=== PATIENT | male | born 1995 | race Caucasian/White ===

== ENCOUNTER 2017-12-04 21:16 | Emergency (ER) | payer OTHER ==
--- NOTE | 2017-12-04 21:20 | ED Physician Documentation ---
Low Back Pain - HISTORIAN Historian: patient - HPI Stated Complaint: Back pain at work Chief Complaint: Lower Extremity Problem History: history of chronic pain:, back pain (He states he has a history of back pain but tonight the pain was increased and noted after picking up an object at work and it felt like "something grabbing me with clamps" and states he took a minute to be able to stand up straight. Denies any loss of control of bowel or bladder. He did not take any OTC meds to aid the pain. States "years ago I had a back injury from lifiting weights" states he has not had any recent issues with his back. no recent injuries. No decrease in movement since the pain but the pain is increased. 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 He states he then told his supervisor taping that he needed to come to the ER. States he has had back isssues in the past but nothing recent. He has no OTC meds on board for pain. Denies any loss of control of bowel or bladder.) - ROS CONST: no problems CVS/RESP: none EYES/ENT: none MS/SKIN/LYMPH: none Neuro/Psych: none - PAST HX Past History: back injury Surgeries/Procedures: none Immunizations: UTD Allergies/Adverse Reactions: Allergies Allergy/AdvReac Type Severity Reaction Status Date / Time No Known Allergies Allergy Verified 12/04/17 22:50 Home Medications: Ambulatory Orders Medication Instructions Recorded Topiramate [Topamax] 50 mg PO BID 12/04/17 - SOCIAL HX Smoking History: non-smoker Alcohol Use: none Drug Use: none - FAMILY HX Family History: none - VITAL SIGNS Vital Signs: Vital Signs Temp Pulse Resp BP Pulse Ox 97.7 F 71 16 133/57 98 12/04/17 22:11 12/04/17 22:11 12/04/17 22:11 12/04/17 22:11 12/04/17 22:11 - REVIEWED ASSESSMENTS Nursing Assessment Reviewed: Yes Vitals Reviewed: Yes ED Results Lab/Radiology - Radiology Radiology Impressions: Thoracic spine, 3 views. History: BACK PAIN AFTER LIFTING BOX TODAY Findings: The vertebral body height are normal. No significant intervertebral disc space narrowing is identified. The facet joints are normal. The posterior ribs are normal. Impression: 1. No acute osseous abnormality. Electronically signed on December 04, 2017 10:59:38 PM CDT by: Ed Conde Lumbar spine, 5 views. History: BACK PAIN AFTER LIFTING BOX TODAY Findings: The vertebral body height are normal. No significant intervertebral disc space narrowing is identified. The facet joints are normal. Impression: 1. No acute osseous abnormality. Electronically signed on December 04, 2017 10:57:45 PM CDT by: Ed Conde - Orders Orders: ED Orders Category Date Time Status LUMBAR SPINE WITH OBLIQUES [L SPINE 4 VIEWS] [RAD] Stat Exams 12/04/17 Taken T SPINE 3 VIEWS [RAD] Stat Exams 12/04/17 Taken Orphenadrine Citrate [Norflex] Med 12/04/17 22:13 Discontinued 60 mg IM NOW ONE Low Back Pain/Injury - Physical Exam General Appearance: no acute distress, alert EENT: eye inspection normal, ENT inspection normal Neck: non-tender, painless ROM Resp/CVS: chest non-tender, breath sounds nml, heart sounds nml, no resp. distress, lungs clear, reg. rate & rhythm Abdomen: non-tender Back: muscle spasm (thoracic spine and lumbar pain with palpation. No recreated pain with movement. States pain is slightly better than with inital pain. ), other Neuro/Psych: oriented x3, motor nml, sensation nml, reflexes nml, mood/affect nml Skin: warm/dry, normal color Extremities: non-tender, normal range of motion, no evidence of injury, no edema Discharge Clincal Impression: Back pain Qualifiers: Back pain location: low back pain Chronicity: unspecified Back pain laterality : bilateral Sciatica presence: without sciatica Qualified Code(s): M54.5 - Low back pain Referrals: Primary Doctor,No [Primary Care Provider] - 2 Days Additional Instructions: 1. Cyclobenzaprine 10 mg Take 1 by mouth every 8 hours as needed for pain 2. Ibuprofen 800 mg Take 1 by mouth every 12 hours as needed for pain 3. Medrol Dose pack 4 mg take as directed 4. Follow up with PCP on Thursday for restrictions eval 5. Return to ER for increased concerns or pain Condition: Stable Disposition: 01 HOME, SELF-CARE Decision to Admit: NO Date of Decison to Admit: 12/04/17 Decision Time: 22:54
[2017-12-04] MEDS ORDERED: ORPHENADRINE CITRATE 60 MG/2ML IM ONE (22:13)
[2017-12-04 22:48] VITALS: BP 133/57
--- NOTE | 2017-12-05 08:06 | Diagnostic Imaging Report ---
ROBERT BENÍTEZ [facility] [address] [facility] [address] [place], [place]. [address] Report Submission Date: December 04, 2017 10:57:45 PM CDT Patient Study Name: MELISSA WINCHESTER Date: December 04, 2017 10:23:53 PM CDT Modality Type: DX Gender: M Description: SPINE : 97 Institution: [facility] Physician: ROBERT BENÍTEZ Lumbar spine, 5 views. History: BACK PAIN AFTER LIFTING BOX TODAY Findings: The vertebral body height are normal. No significant intervertebral disc space narrowing is identified. The facet joints are normal. Impression: 1. No acute osseous abnormality. Electronically signed on December 04, 2017 10:57:45 PM CDT by: Ed CRENSHAW
--- NOTE | 2017-12-05 08:07 | Diagnostic Imaging Report ---
ROBERT BENÍTEZ [facility] [address] [facility] [address] [place], [place]. [address] Report Submission Date: December 04, 2017 10:59:38 PM CDT Patient Study Name: MELISSA WINCHESTER Date: December 04, 2017 10:22:38 PM CDT Modality Type: DX Gender: M Description: SPINE : 97 Institution: [facility] Physician: ROBERT BENÍTEZ Thoracic spine, 3 views. History: BACK PAIN AFTER LIFTING BOX TODAY Findings: The vertebral body height are normal. No significant intervertebral disc space narrowing is identified. The facet joints are normal. The posterior ribs are normal. Impression: 1. No acute osseous abnormality. Electronically signed on December 04, 2017 10:59:38 PM CDT by: Ed CRENSHAW
== END 2017-12-04 23:30 | disposition home or self-care (01) ==
LOC: ED 21:16
DX: M54.5 Low back pain (principal)
CPT/HCPCS: 72072; 72110; J2360; 96372; 99284

== ENCOUNTER 2018-03-24 18:56 | Emergency (ER) | payer OTHER ==
--- NOTE | 2018-03-24 19:35 | Diagnostic Imaging Report ---
ILA CALDERÓN ([employer]) - ER [facility] [place] [facility] [address] [facility] [address] [place], [place]. [address] Report Submission Date: Mar 24, 2018 7:34:03 PM CDT Patient Study Name: MELISSA WINCHESTER Date: Mar 24, 2018 7:12:24 PM CDT Modality Type: CT Gender: M Description: CT BRAIN W/O CONTRAST : 97 Institution: [facility] [place] [facility] Physician: ILA CALDERÓN ([employer]) - ER CT head without contrast HISTORY Head injury, nausea, vomiting. TECHNIQUE Images through the brain were obtained without contrast. FINDINGS No mass, midline shift, obstructive hydrocephalous or acute intracranial hemorrhage is present. The ventricles are normal. No extra-axial fluid collection is identified. IMPRESSION Normal. Electronically signed on Mar 24, 2018 7:34:03 PM CDT by: Kilo CRENSHAW
--- NOTE | 2018-03-24 19:52 | ED Physician Documentation ---
Dizziness - HISTORIAN Historian: patient - HPI Stated Complaint: Right side head injury Chief Complaint: Scalp Injury Timing: sudden onset Associated Symptoms: nausea, vomiting, sense of spinning, headache. denies: hearing loss, ringing in ear, roaring in ear, ear pain, sense of falling, weakness, numbness, sweating, light headedness, fainted, nearly fainted, sense of confusion Usually: walks w/o assistance Further Comments: yes (22 year old male patient presents with complaint of hitting his head on the metal lockers at work. Patient is employed at the assisted. States he tripped, strking his head on the metal lockers, c/o dizziness, nausea and headache. Denies LOC.) - ROS CONST: none EYES/ENT: none GI/: none MS/SKIN/LYMPH: other (abrasion forehead) NEURO/PSYCH: none - PAST HX Past History: none Cardiac Disease: none Surgeries/Procedures: none Allergies/Adverse Reactions: Allergies Allergy/AdvReac Type Severity Reaction Status Date / Time No Known Allergies Allergy Verified 03/24/18 19:10 Home Medications: Ambulatory Orders Medication Instructions Recorded NK 03/24/18 - SOCIAL HX Smoking History: non-smoker - FAMILY HX Family History: denies: none - VITAL SIGNS Vital Signs: Vital Signs Temp Pulse Resp BP Pulse Ox 98.0 F 72 18 129/72 97 03/24/18 19:00 03/24/18 19:00 03/24/18 19:00 03/24/18 19:00 03/24/18 19:00 - REVIEWED ASSESSMENTS Nursing Assessment Reviewed: Yes Vitals Reviewed: Yes ED Results Lab/Radiology - Radiology Radiology Impressions: CT head without contrast HISTORY Head injury, nausea, vomiting. TECHNIQUE Images through the brain were obtained without contrast. FINDINGS No mass, midline shift, obstructive hydrocephalous or acute intracranial hemorrhage is present. The ventricles are normal. No extra-axial fluid collection is identified. IMPRESSION Normal. Electronically signed on Mar 24, 2018 7:34:03 PM CDT by: Kilo Archer - Orders Orders: ED Orders Category Date Time Status CT BRAIN W/O CONTRAST Stat Exams 03/24/18 Completed Dizziness Physical Exam - Physical Exam General Appearance: [id number] EENT: eye inspection normal, ENT inspection normal, pharynx normal, no signs of dehydration, FAVIAN, no nystagmus, TM's nml Respiratory: no respiratory distress, breath sounds nml, chest non-tender CVS: reg rate & rhythm, heart sounds normal, equal pulses, no murmur, no gallop, PMI nml, no JVD, no friction rub, 24 Abdomen: soft, no organomegaly, normal bowel sounds, no abdominal bruit, no distension Skin: warm/dry, normal color, other (1 cm abrasion to forehead) Neuro: nml orientation, nml speech, nml cognition, mood/affect nml Extremities: non-tender, normal range of motion, no evidence of injury, no edema, J, DISABILITY RATER Cranial: nml as tested, no evidence of acute CVA Cerebellar: nml as tested, nml gait Sensorimotor: motor nml, sensation nml Discharge Clincal Impression: Fall Qualifiers: Encounter type: initial encounter Qualified Code(s): W19.XXXA - Unspecified fall, initial encounter Closed head injury Qualifiers: Encounter type: initial encounter Qualified Code(s): S09.90XA - Unspecified injury of head, initial encounter Clincal Impression: (Ruled Out): Fall from mobile elevated work platform as cause of accidental injury Referrals: Primary Doctor,No [Primary Care Provider] - 2 Days Additional Instructions: Return to ER if if you have any of the follow symptoms: 1.Extremely sleepy or confused 2.Severe or worsening headache 3.Seizure 4.Vomiting, fever >101.5, or stiff neck 5.Loss of control or urine or bowel 6.Trouble walking 7.Use Tylenol every 4 hours as needed for Headache 8.Diet: Start with Clear liquids and advance diet as tolerated. 9.Follow up with your doctor in 2-3 days. Condition: Stable Disposition: 01 HOME, SELF-CARE Decision to Admit: NO Decision Time: 20:14
[2018-03-24] MEDS ORDERED: ACETAMINOPHEN 500 MG TABLET PO ONE (20:20)
[2018-03-24] MEDS ORDERED: ONDANSETRON HCL 4 MG TAB.RAPDIS PO ONE (20:20)
[2018-03-24 20:47] VITALS: BP 114/63
== END 2018-03-24 20:35 | disposition home or self-care (01) ==
LOC: ED 18:56
DX: S09.90XA Unspecified injury of head, initial encounter (principal); W19.XXXA Unspecified fall, initial encounter; Y92.148 Other place in prison as the place of occurrence of the external cause; Y93.9 Activity, unspecified; Y99.9 Unspecified external cause status
CPT/HCPCS: 70450; A9270; 99284